=== PATIENT | female | born 1955 ===

== ENCOUNTER 2024-02-21 18:42 | Emergency (ER) | payer MEDICARE, OTHER ==
[2024-02-21] MEDS ORDERED: fentaNYL 100 MCG/2 ML SDV IV ONE (18:43)
[2024-02-21] MEDS ORDERED: Ondansetron 4 MG/2 ML SDV IV ONE (18:43)
[2024-02-21 19:01] LABS: BASOPHILS PERCENT AUTO 0.3 % (0.0-1.0); EOSINOPHILS PERCENT AUTO 0.3 % (1.0-3.0); HEMATOCRIT 43.9 % (37.0-47.0); HEMOGLOBIN 14.6 g/dL (12.0-16.0); LYMPHOCYTES PERCENT AUTO 13.1 % (20.5-50.1); MEAN CORPUSCULAR HEMOGLOBIN 32.2 pg (27.0-34.0); MEAN CORPUSCULAR HGB CONC 33.3 g/dL (33.0-35.0); MEAN CORPUSCULAR VOLUME 96.7 fL (80-100); MONOCYTES PERCENT AUTO 3.1 % (2-8); NEUTROPHILS PERCENT AUTO 83.2 % (42.2-75.2); PLATELET COUNT,PLT 274 10^3/uL (150-450); RED BLOOD CELL COUNT 4.54 10^6/uL (4.2-5.4); WHITE BLOOD CELL COUNT,WBC 10.1 10^3/uL (5.0-10.0)
[2024-02-21 19:24] LABS: A/G RATIO 1.1; ALANINE AMINOTRANSFERASE,ALT 32 U/L (14-59); ALBUMIN 3.8 g/dL (3.4-5.0); ALKALINE PHOSPHATASE 86 U/L (46-116); ANION GAP 14.4 mEq/L (7-13); ASPARTATE AMNIOTRANSFERASE,AST 24 U/L (15-37); BILIRUBIN TOTAL 0.3 mg/dL (0.2-1.0); BLOOD UREA NITROGEN,BUN 21 mg/dL (7-18); BUN/CREATININE RATIO 19.6 (No establ ref range); CALCIUM 9.4 mg/dL (8.5-10.1); CARBON DIOXIDE,CO2 27 mmol/L (21-32); CHLORIDE,CL 100 mmol/L (98-107); CREATININE 1.07 mg/dL (0.55-1.02); GLUCOSE RANDOM 220 mg/dL (70-99); POTASSIUM,K 4.4 mmol/L (3.5-5.1); PROTEIN TOTAL,TP 7.4 g/dL (6.4-8.2); SODIUM,NA 137 mmol/L (136-145)
[2024-02-21] MEDS ORDERED: Ondansetron 4 MG/2 ML SDV ONE (19:27)
[2024-02-21] MEDS ORDERED: fentaNYL 100 MCG/2 ML SDV ONE (19:28)
[2024-02-21 19:29] LABS: INR 0.9 (0.9-1.2); PROTHROMBIN TIME 9.7 SEC (9.0-12.0)
[2024-02-21] MEDS ORDERED: fentaNYL 100 MCG/2 ML SDV IVPUSH ONE (19:29)
[2024-02-21 19:30] LABS: ESTIMATED GFR 56 mL/min (>=60)
[2024-02-21] MEDS ORDERED: Ondansetron 4 MG/2 ML SDV IVPUSH ONE (19:30)
[2024-02-21] MEDS: Iopamidol 612 MG/ML 100 ML Bottle IVPUSH ONE (19:39)
[2024-02-21] MEDS: Take Home: Acetaminophen/HYDROcodone 325-5 MG, 5 Tab Pack PO ONE (20:50)
== END 2024-02-21 20:56 | disposition home or self-care (01) ==
LOC: DL.ED 18:42
DX: S32.040A Wedge compression fracture of fourth lumbar vertebra, initial encounter for closed fracture (principal); S20.312A Abrasion of left front wall of thorax, initial encounter; V49.40XA Driver injured in collision with unspecified motor vehicles in traffic accident, initial encounter; Y92.410 Unspecified street and highway as the place of occurrence of the external cause
CPT/HCPCS: 36415; 70450; 71045; 71260; 72125; 72128; 72131; 74177; 80053; 85025; 85610; 96374; 96375; 99284-25; A9270-GY; J2405; J3010; Q9967